=== PATIENT | male | born 1980 | race African-American/Black ===

== ENCOUNTER 2021-06-25 01:43 | Emergency (ER) | payer OTHER ==
[~2021-06-25] VITALS: Ht 170.2 cm; Wt 84.1 kg
[~2021-06-25 01:43] MED LIST: CEPHALEXIN500 M1 PO
[2021-06-25 02:01] LABS: BASO % 0.5 % (0.0-2.0); EOS # 0.4 (0.0-0.7); EOS % 6.4 % (0-4.0); GRAN # 3.4 (1.4-6.5); GRAN % 53.3 % (42.2-75.2); HEMATOCRIT 45.3 % (42.0-52.0); HEMOGLOBIN 15.2 g/dl (13.5-18.0); LYMPH # 2.1 (1.2-3.4); LYMPH % 33.2 % (20.0-51.0); MEAN CELL VOLUME 84 fl (80.0-100.0); MEAN CORPUSCULAR HEMOGLOBIN 28 pg (27.0-31.0); MEAN CORPUSCULAR HGB CONC 34 g/dl (33.0-37.0); MONO # 0.4 (0.1-0.6); MONO % 6.4 % (1.7-9.3); PLATELET COUNT 254 K/mm3 (130-400); RED BLOOD COUNT 5.39 M/mm3 (4.20-5.60)
[2021-06-25 02:07] LABS: ALBUMIN 4.4 gm/dL (3.5-5.0); BILIRUBIN,TOTAL 0.5 mg/dL (0.0-1.0); CALCIUM 9.7 mg/dL (8.4-10.2); CREATININE, serum 1.08 (0.66-1.25); POTASSIUM 4.1 mmol/L (3.4-5.0); TOTAL PROTEIN 7.4 gm/dL (6.4-8.2)
[2021-06-25] MEDS ORDERED: PROTONIX 40MG T40 MG PO ×2 (04:19→04:52)
[2021-06-25] MEDS ORDERED: PERCOCET 325 MG1 TA2 PO (04:19)
[2021-06-25] MEDS ORDERED: ZOFRAN ODT4 MG PO ×2 (04:19→04:52)
[2021-06-25 04:46] VITALS: BP 123/87; PULSE 98; TEMP 98.6
== END 2021-06-25 04:46 | disposition home or self-care (01) ==
LOC: COL.ER 01:43
PROVIDERS: Personal Emergency Response Attendant
DX: K29.70 Gastritis, unspecified, without bleeding (principal)
CPT/HCPCS: C9113; J2270; J2405; J7030; Q9967